=== PATIENT | female | born 1960 | race Caucasian/White ===

== ENCOUNTER → 2020-09-18 08:15 | Outpatient (CLI) | payer BC, SELFPAY ==
--- NOTE | ~2020-09-18 | MR_ITS ---
EXAMINATION: MR lumbar spine wo con DATE: 09/18/2020 08:54 INDICATION: Left-sided sciatica. Left leg numbness. Left hip and leg pain. TECHNIQUE: Magnetic resonance imaging (MRI) of the lumbar spine was performed without intravenous con trast. Sequences included sagittal T2-weighted FSE, sagittal T2-weighted FS FSE, sagittal T1-weighted FSE, and axial T2-weighted FSE. COMPARISON: None FINDINGS: There is 5 degrees dextrocurvature of lumbar spine. Vertebral body heights are normal. Ther e are Schmorl's nodes at most levels. There is mildly decreased disc height at L3-L4 and L4-L5. The d istal spinal cord signal intensity is normal. The conus medullaris is at T12-L1. The following disc l evels are specifically discussed: L1-L2: The disc does not extend beyond the endplate margin. There is mild bilateral facet joint osteo arthritis. There is no neural foraminal stenosis. There is no central canal stenosis. L2-L3: The disc does not extend beyond the endplate margin. There is mild bilateral facet joint osteo arthritis. There is no neural foraminal stenosis. There is no central canal stenosis. L3-L4: The disc is bulging. There is moderate right and severe left facet joint osteoarthritis. There is mild bilateral neural foraminal stenosis. There is mild central canal stenosis. L4-L5: The disc is bulging. There is severe bilateral facet joint osteoarthritis. There is mild bilat eral neural foraminal stenosis. There is mild central canal stenosis. L5-S1: The disc does not extend beyond the endplate margin. There is moderate right and severe left f acet joint osteoarthritis. There is no neural foraminal stenosis. There is no central canal stenosis. IMPRESSION: 1. Mild lumbar spondylosis. Reviewed, dictated and finalized at location A. IMPRESSION: 1. Mild lumbar spondylosis.
== END ==
PROVIDERS: PCP Internal Medicine; Visit Provider Internal Medicine
DX: R20.2 Paresthesia of skin (principal); M54.30 Sciatica, unspecified side; M47.896 Other spondylosis, lumbar region
CPT/HCPCS: 72148

== ENCOUNTER 2021-10-27 01:07 | Day surgery (SDC) | payer BC, SELFPAY ==
[2021-10-09 14:16] VITALS: BMI 30.2
[2021-10-27 11:50] VITALS: BP 137/78; PULSE 88; RESP 16; TEMP 36.2; O2SAT 95; BMI 29.7
--- NOTE | 2021-10-27 11:57 | WPDANESEPPF ---
Anes - Initial Pre Proc Eval Procedure: Operation Date: 10/27/21 13:00 Proposed Procedures p Colonoscopy - Roe Juarez MD Date/Time: 10/27/21 11:57 Surgeon: Roe Juarez MD Pre Op Diagnosis: abdominal pain Patient Data Age: 61 Gender: F Height: 1.57 m Weight: 73.6 kg Last Vital Signs Temp 97.2 F L 10/27/21 11:50 Pulse 88 10/27/21 11:50 Resp 16 10/27/21 11:50 BP 137/78 10/27/21 11:50 Pulse Ox 95 10/27/21 11:50 O2 Del Method Room Air 10/27/21 11:50 Allergies Allergy/AdvReac Type Severity Reaction Status Date / Time No Known Allergies Allergy Verified 10/27/21 11:49 Home Medications Medication Instructions Recorded Confirmed Type No Home Medications 10/27/21 10/27/21 History Patient hx anesthesia problems: none Family hx anesthesia problems: none Results Review: All pre-operative results and documents have been reviewed as part of the pre-operative evaluation. [facility] Past Medical History Medical History (Updated 09/30/21 @ 15:34 by Antony Sahni MD) Abdominal pain Colonoscopy planned Physical exam, annual Family History Family History Father Lung cancer Mother Diabetes mellitus Hypertension Heart disease Hypothyroidism Social History Social History Years smoked: 20 Smoking status: Current every day smoker Tobacco type: cigarettes Alcohol intake: current Drinks per week: 2 Alcohol use details: monthly Substance use: never Substance use type: does not use Living arrangements: with family Gender identity (if verbalized by the patient): Female Spiritual care concerns: No Anes - Eval Final PreProcedure Day of Procedure 10/27/21 11:57 Patient weight: normal Heart: regular rate and rhythm Lungs: clear to auscultation Airway: Mallampati scale class II Neurological: alert and oriented Last oral intake: >/= 8 hours ASA classification: II Emergent: no Anesthetic plan: proceed Anesthesia type and monitoring: general GIVS and standard monitoring Results Review: All pre-operative results and documents have been reviewed as part of the pre-operative evaluation. Informed Consent: The patient's anesthetic plan and its attendant risks and benefits were discussed with the patient/family/POA. Questions were solicited and answers provided to the satisfaction of the patient/family/POA.
[2021-10-27] MEDS: LACTATED RINGERS 1,000 ML 150 ML IV CONT (11:59)
--- NOTE | 2021-10-27 12:00 | PM.IMHP ---
H&P: HPI History of Present Illness Date/Time: 10/27/21 12:00 Chief Complaint: History of colon polyps Narrative: this is a 61-year-old white female patient presents for screening colonoscopy. Patient reports she had a colonoscopy 3 or 4 years ago at [facility] that showed colon polyps. These reports are not available for review. Patient was advised to return in 3 or 4 years for follow-up colonoscopy. Patient states that her current weight appetite bowel movements are normal. She states she will get vague abdominal pain perhaps once a month that will last for several days. She has no bleeding. No weight loss. Her family history is noncontributory. Review of Systems Review of Systems: Review of systems noncontributory. [facility] Past Medical History Medical History (Updated 10/27/21 @ 12:01 by Roe Juarez MD) Abdominal pain Colonoscopy planned Physical exam, annual Family History Family History Father Lung cancer Mother Diabetes mellitus Hypertension Heart disease Hypothyroidism Social History Social History Years smoked: 20 Smoking status: Current every day smoker Tobacco type: cigarettes Alcohol intake: current Drinks per week: 2 Alcohol use details: monthly Substance use: never Substance use type: does not use Living arrangements: with family Gender identity (if verbalized by the patient): Female Spiritual care concerns: No Meds Home Medications and Allergies Home Medications Medication Instructions Recorded Confirmed Type No Home Medications 10/27/21 10/27/21 History Allergies Allergy/AdvReac Type Severity Reaction Status Date / Time No Known Allergies Allergy Verified 10/27/21 11:49 Vital Signs Vital Signs - 24 hr 10/27/21 11:50 Temperature 97.2 F L Pulse Rate 88 Respiratory Rate 16 Blood Pressure 137/78 Pulse Oximetry 95 Oxygen Delivery Room Air Exam Narrative: Physical exam reveals patient to be alert. Vital signs stable. HEENT exam is unremarkable. Patient is anicteric. Lungs are clear to auscultation and percussion. Heart is without murmur or extra sounds. Abdomen bowel sounds present soft nontender with no organomegaly. Digital external rectal exam is normal. Assessment and Plan Assessment and plan (1) Encounter for screening colonoscopy: Code(s): Z12.11 - Encounter for screening for malignant neoplasm of colon Status: Acute Assessment and Plan: Patient gives a history of having had colon polyps at a different institution 3 or 4 years ago. Plan is for surveillance colonoscopy now. Old records not available for review review. But follow-up colonoscopy typical at 5 year intervals if it is significant colon polyps were found at that time. (2) Abdominal pain: Code(s): R10.9 - Unspecified abdominal pain Status: Acute Assessment and Plan: Patient gives a history of vague abdominal pain that occurs about once a month. No specific precipitating or aggravating features. She does report some loose stools. Plan is for fiber supplements for possible IBS. Colonoscopy is anticipated will be reviewed perhaps additional recommendations may be given after endoscopy.
[2021-10-27 13:21] VITALS: BP 120/65; PULSE 71; RESP 17; O2SAT 99
--- NOTE | 2021-10-27 13:22 | SUR.OPER ---
2 Sigmoid Colon Polyps removed but only 1 was able to be retrieved. Dr. Juarez has been notified and is aware.
[2021-10-27 13:31] VITALS: BP 107/74; PULSE 68; RESP 16; O2SAT 98
[2021-10-27 13:41] VITALS: BP 126/77; PULSE 59; RESP 18; O2SAT 100
== END 2021-10-27 13:55 | disposition home or self-care (01) ==
PROVIDERS: PCP Family Medicine; Visit Provider Internal Medicine Gastroenterology
PROC: 0DJD8ZZ Inspection of Lower Intestinal Tract, Via Natural or Artificial Opening Endoscopic (ICD-10-PCS; CPT 45378; principal; 2021-10-27 13:00)
DX: Z12.11 Encounter for screening for malignant neoplasm of colon (principal); K63.5 Polyp of colon; K62.1 Rectal polyp; R10.84 Generalized abdominal pain; F17.210 Nicotine dependence, cigarettes, uncomplicated
CPT/HCPCS: 45385; 88305; J2704; J7120